=== PATIENT | female | born 1945 | race African-American/Black ===

== ENCOUNTER 2016-11-08 07:30 | Outpatient (CLI) | payer MEDICARE, BC ==
[2016-11-08 08:02] LABS: Anion Gap 13 mmol/L (10-20); BUN (Urea Nitrogen) 20 mg/dL (9.8-20.1); Calc. Creatinine Clearance 0 mL/min (70-130); Calcium 9.8 mg/dL (7.8-10.44); Carbon Dioxide 24 mmol/L (23-31); Chloride 111 mmol/L (98-107); Estimated GFR-MDRD 45; Glucose 89 mg/dL (83-110); Potassium 4.8 mmol/L (3.5-5.1); Sodium 143 mmol/L (136-145)
== END 2016-11-08 07:31 | disposition home or self-care (01) ==
LOC: BURLAB 07:30
PROVIDERS: ATTEND Family Medicine
DX: Z00.00 Encounter for general adult medical examination without abnormal findings (principal)
CPT/HCPCS: 36415; 80048

== ENCOUNTER 2016-12-22 14:30 | Emergency (ER) | payer MEDICARE, BC ==
[2016-12-22] MEDS ORDERED: Hydrochlorothiazide 25 MG TAB ONE (15:13)
== END 2016-12-22 15:22 | disposition home or self-care (01) ==
LOC: BURERS 14:30
DX: I10 Essential (primary) hypertension (principal); F41.9 Anxiety disorder, unspecified; F32.9 Major depressive disorder, single episode, unspecified; F17.210 Nicotine dependence, cigarettes, uncomplicated
CPT/HCPCS: 93005

== ENCOUNTER 2017-01-19 13:17 | Outpatient (CLI) | payer MEDICARE, BC ==
[2017-01-19 14:00] LABS: ALT (SGPT) 17 U/L (8-55); AST (SGOT) 21 U/L (5-34); Albumin 4.3 g/dL (3.4-4.8); Alkaline Phosphatase 80 U/L (40-150); Anion Gap 14 mmol/L (10-20); BUN (Urea Nitrogen) 19 mg/dL (9.8-20.1); Bilirubin, Total 0.2 mg/dL (0.2-1.2); Calc. Creatinine Clearance 0 mL/min (70-130); Calcium 9.8 mg/dL (7.8-10.44); Carbon Dioxide 23 mmol/L (23-31); Chloride 109 mmol/L (98-107); Estimated GFR-MDRD 39; Globulin 3.1 g/dL (2.4-3.5); Glucose 82 mg/dL (83-110); Potassium 4.2 mmol/L (3.5-5.1); Protein, Total 7.4 g/dL (6.0-8.3); Sodium 142 mmol/L (136-145)
[2017-01-19 14:10] LABS: #Basophils 0.1 thou/uL (0.0-0.2); #Eosinphils 0.1 thou/uL (0.0-0.7); #Lymphocytes 2.1 thou/uL (1.20-3.40); #Monocytes 0.3 thou/uL (0.11-0.59); %Basophils 2.5 % (0.0-1.0); %Eosinophils 1.1 % (0.0-10.0); %Lymphocytes 45.7 % (21.0-51.0); %Monocytes 7.1 % (0.0-10.0); %Neutrophils 43.7 % (42.0-75.0); Hemoglobin 13.4 g/dL (12.0-16.0); Mean Corpuscular Hemoglobin 30.2 pg (27.0-31.0); Mean Corpuscular Volume 88.7 fl (81.0-99.0); Mean Platelet Volume 6.4 fL (7.4-10.4); Platelet Count 245 thou/uL (130-400); RBC Distribution Width 12.4 % (11.5-14.5); Red Blood Cell (RBC) Count 4.46 mill/uL (4.20-5.40); White Blood Cell (WBC) Count 4.6 thou/uL (4.8-10.8)
[2017-01-19 14:22] LABS: Free T4 (Free Thyroxine) 0.81 ng/dL (0.70-1.48); Thyroid Stimulating Hormone 0.5355 uIU/mL (0.35-4.94)
[2017-01-19 14:38] LABS: RBC Sedimentation Rate (ESR) 29 mm/hr (0-20)
[2017-01-19 22:30] LABS: RPR NONREACTIVE (NONREACTIVE)
[2017-01-19 22:36] LABS: Rheumatoid Factor Negative (Negative)
[2017-01-21 18:11] LABS: Antinuclear AB Positive (Negative); Smith Antibodies <0.2 AI (0.0-0.9); U1RNP/snRNP IGG Autoabs 6.3 AI (0.0-0.9)
== END 2017-01-19 13:18 | disposition home or self-care (01) ==
LOC: BURLAB 13:17
PROVIDERS: ATTEND Specialist
DX: H91.92 Unspecified hearing loss, left ear (principal); Z79.899 Other long term (current) drug therapy
CPT/HCPCS: 36415; 80053; 84439; 84443; 85025; 85652; 86430; 86592

== ENCOUNTER 2017-03-03 07:03 | Outpatient (CLI) | payer MEDICARE, BC ==
[2017-03-03 08:17] LABS: ALT (SGPT) 25 U/L (8-55); AST (SGOT) 31 U/L (5-34); Albumin 4.4 g/dL (3.4-4.8); Alkaline Phosphatase 83 U/L (40-150); Anion Gap 16 mmol/L (10-20); BUN (Urea Nitrogen) 19 mg/dL (9.8-20.1); Bilirubin, Total 0.4 mg/dL (0.2-1.2); Calc. Creatinine Clearance 0 mL/min (70-130); Calcium 9.9 mg/dL (7.8-10.44); Carbon Dioxide 23 mmol/L (23-31); Cardiac Risk 2.8 (Less than 4.5); Chloride 110 mmol/L (98-107); Cholesterol 239 mg/dl (< 200 Desired); Estimated GFR-MDRD 40; Glucose 92 mg/dL (83-110); HDL Cholesterol 85 mg/dL (>60 Neg Risk); LDL Cholesterol, Calculated 144 mg/dL; Potassium 5.2 mmol/L (3.5-5.1); Protein, Total 7.4 g/dL (6.0-8.3); Sodium 144 mmol/L (136-145); Triglycerides 52 mg/dL (Less than 150)
[2017-03-03 08:50] LABS: #Basophils 0.1 thou/uL (0.0-0.2); #Eosinphils 0.1 thou/uL (0.0-0.7); #Lymphocytes 1.8 thou/uL (1.20-3.40); #Monocytes 0.5 thou/uL (0.11-0.59); #Neutrophils 2.4 thou/uL (1.40-6.50); %Basophils 2.5 % (0.0-1.0); %Eosinophils 1.8 % (0.0-10.0); %Lymphocytes 37.3 % (21.0-51.0); %Monocytes 9.8 % (0.0-10.0); %Neutrophils 48.7 % (42.0-75.0); Mean Corpuscular Hemoglobin 29.7 pg (27.0-31.0); Mean Corpuscular Volume 90.2 fl (81.0-99.0); Mean Platelet Volume 6.4 fL (7.4-10.4); Platelet Count 315 thou/uL (130-400); RBC Distribution Width 13.2 % (11.5-14.5); Red Blood Cell (RBC) Count 4.72 mill/uL (4.20-5.40); White Blood Cell (WBC) Count 4.9 thou/uL (4.8-10.8)
== END 2017-03-03 07:04 | disposition home or self-care (01) ==
LOC: BURLAB 07:03
PROVIDERS: ATTEND Family Medicine
DX: Z13.6 Encounter for screening for cardiovascular disorders (principal); I10 Essential (primary) hypertension
CPT/HCPCS: 36415; 80053; 80061; 85025

== ENCOUNTER 2017-04-14 13:26 | Emergency (ER) | payer MEDICARE, BC | END 2017-04-14 15:39 | disposition home or self-care (01) | LOC: BURERS 13:26 | DX: J06.9 Acute upper respiratory infection, unspecified (principal); H81.12 Benign paroxysmal vertigo, left ear; H65.92 Unspecified nonsuppurative otitis media, left ear; I10 Essential (primary) hypertension; F41.9 Anxiety disorder, unspecified; F32.9 Major depressive disorder, single episode, unspecified; F17.210 Nicotine dependence, cigarettes, uncomplicated; Z79.899 Other long term (current) drug therapy ==

== ENCOUNTER 2017-07-31 05:23 | Emergency (ER) | payer MEDICARE, BC ==
[2017-07-31] MEDS ORDERED: Meclizine HCl 25 MG TAB ONE (05:48)
[2017-07-31] MEDS ORDERED: Ondansetron ODT 4 MG TAB ONE (05:48)
[2017-07-31] MEDS ORDERED: AMOXicillin 250 MG CAP ONE (06:07)
== END 2017-07-31 08:13 | disposition home or self-care (01) ==
LOC: BURERS 05:23
DX: R42 Dizziness and giddiness (principal); J06.9 Acute upper respiratory infection, unspecified; I10 Essential (primary) hypertension; F17.210 Nicotine dependence, cigarettes, uncomplicated; F41.9 Anxiety disorder, unspecified; F32.9 Major depressive disorder, single episode, unspecified; Z79.899 Other long term (current) drug therapy
CPT/HCPCS: 99284; Q0162

== ENCOUNTER 2017-08-05 10:13 | Emergency (ER) | payer MEDICARE, BC | END 2017-08-05 10:53 | disposition home or self-care (01) | LOC: BURERS 10:13 | DX: R42 Dizziness and giddiness (principal); I10 Essential (primary) hypertension; F41.9 Anxiety disorder, unspecified; F32.9 Major depressive disorder, single episode, unspecified; F17.210 Nicotine dependence, cigarettes, uncomplicated | CPT/HCPCS: 99283 ==

== ENCOUNTER 2017-08-08 11:27 | Emergency (ER) | payer MEDICARE, BC ==
[2017-08-08] MEDS ORDERED: Diazepam 10 MG/2 ML SYRINGE ONE (11:41)
[2017-08-08] MEDS ORDERED: diphenhydrAMINE 50 MG/ML VIAL ONE (11:45)
== END 2017-08-08 13:09 | disposition home or self-care (01) ==
LOC: BURERS 11:27
DX: H81.10 Benign paroxysmal vertigo, unspecified ear (principal); F41.9 Anxiety disorder, unspecified; F32.9 Major depressive disorder, single episode, unspecified; F17.210 Nicotine dependence, cigarettes, uncomplicated; Z79.899 Other long term (current) drug therapy
CPT/HCPCS: 96374; 96375; J1200; J3360

== ENCOUNTER 2018-01-08 13:54 | Emergency (ER) | payer MEDICARE, BC ==
[2018-01-08 15:00] LABS: Band 1 % (5-11); Hemoglobin 12.4 g/dL (12.0-16.0); Lymphocytes 48 % (21-51); MDiff Complete? YES; Mean Corpuscular HGB CONC 34.6 g/dL (32.0-36.0); Mean Corpuscular Volume 83.7 fl (81.0-99.0); Mean Platelet Volume 5.7 fL (7.4-10.4); Monocytes 12 % (0-10); Neutrophil 39 % (42-75); Platelet Count 255 thou/uL (130-400); RBC Distribution Width 12.8 % (11.5-14.5); Red Blood Cell (RBC) Count 4.29 mill/uL (4.20-5.40); Small Platelets SLIGHT; White Blood Cell (WBC) Count 4.1 thou/uL (4.8-10.8)
[2018-01-08 15:02] LABS: ALT (SGPT) 21 U/L (8-55); AST (SGOT) 23 U/L (5-34); Albumin 4.3 g/dL (3.4-4.8); Alkaline Phosphatase 100 U/L (40-150); Anion Gap 15 mmol/L (10-20); BUN (Urea Nitrogen) 30 mg/dL (9.8-20.1); Bilirubin, Total 0.3 mg/dL (0.2-1.2); Calc. Creatinine Clearance 0 mL/min (70-130); Calcium 10.2 mg/dL (7.8-10.44); Carbon Dioxide 22 mmol/L (23-31); Chloride 108 mmol/L (98-107); Estimated GFR-MDRD 36; Glucose 101 mg/dL (83-110); INR-International Normal Ratio 0.9; PTT 24.4 SEC (22.9-36.1); Potassium 3.8 mmol/L (3.5-5.1); Protein, Total 7.3 g/dL (6.0-8.3); Prothrombin Time 11.8 SEC (12.0-14.7); Sodium 141 mmol/L (136-145)
[2018-01-08 15:04] LABS: CKMB 2.4 ng/mL (0-6.6); Troponin I Less than 0.010 ng/mL (< 0.028)
[2018-01-08 16:24] LABS: Troponin I Less than 0.010 ng/mL (< 0.028)
--- NOTE | 2018-01-08 20:25 | RAD ---
CHEST TWO VIEWS 01/08/18 Comparison is made with a 12/16/[address] [facility]. The heart is normal in size. There is no vascular congestion, edema, or pleural effusion. No focal pu lmonary infiltrate was seen. The lungs are mildly hyperexpanded, however. Calcification is seen in th e aortic arch. The trachea is midline. IMPRESSION: Hyperexpanded lungs but no acute findings otherwise. POS: HOME
== END 2018-01-08 16:57 | disposition home or self-care (01) ==
LOC: BURERS 13:54
DX: R06.02 Shortness of breath (principal); I10 Essential (primary) hypertension; F17.210 Nicotine dependence, cigarettes, uncomplicated; Z79.82 Long term (current) use of aspirin; Z79.899 Other long term (current) drug therapy
CPT/HCPCS: 71046; 80053; 82553; 83605; 83880; 84484; 85025; 85610; 85730

== ENCOUNTER 2018-01-22 14:27 | Emergency (ER) | payer MEDICARE, BC ==
[2018-01-22 14:55] LABS: #Basophils 0.1 thou/uL (0.0-0.2); #Eosinphils 0.1 thou/uL (0.0-0.7); #Lymphocytes 1.7 thou/uL (1.20-3.40); #Monocytes 0.4 thou/uL (0.11-0.59); #Neutrophils 1.6 thou/uL (1.40-6.50); %Basophils 2.2 % (0.0-1.0); %Eosinophils 1.6 % (0.0-10.0); %Lymphocytes 44.9 % (21.0-51.0); %Monocytes 9.4 % (0.0-10.0); %Neutrophils 41.9 % (42.0-75.0); Hemoglobin 13.5 g/dL (12.0-16.0); Mean Corpuscular Hemoglobin 29.6 pg (27.0-31.0); Mean Corpuscular Volume 82.3 fl (81.0-99.0); Mean Platelet Volume 5.5 fL (7.4-10.4); Platelet Count 230 thou/uL (130-400); RBC Distribution Width 12.4 % (11.5-14.5); Red Blood Cell (RBC) Count 4.54 mill/uL (4.20-5.40); White Blood Cell (WBC) Count 3.9 thou/uL (4.8-10.8)
[2018-01-22 15:12] LABS: ALT (SGPT) 20 U/L (8-55); AST (SGOT) 22 U/L (5-34); Albumin 4.6 g/dL (3.4-4.8); Alkaline Phosphatase 99 U/L (40-150); Anion Gap 18 mmol/L (10-20); BUN (Urea Nitrogen) 31 mg/dL (9.8-20.1); Bilirubin, Total 0.3 mg/dL (0.2-1.2); Calc. Creatinine Clearance 0 mL/min (70-130); Calcium 10.1 mg/dL (7.8-10.44); Carbon Dioxide 18 mmol/L (23-31); Chloride 107 mmol/L (98-107); Estimated GFR-MDRD 37; Glucose 90 mg/dL (83-110); Protein, Total 7.6 g/dL (6.0-8.3); Sodium 139 mmol/L (136-145)
[2018-01-22 15:13] LABS: CKMB 2.1 ng/mL (0-6.6); Troponin I Less than 0.010 ng/mL (< 0.028)
--- NOTE | 2018-01-22 17:09 | RAD ---
PORTABLE CHEST: 01/22/18 An AP portable film at 1428 is compared with a 01/08/18 study. The heart remains normal in size and the lungs are clear. There is no vascular congestion, edema, or pleural effusion. No infiltrates are seen. Calcification of the aortic arch is noted. IMPRESSION: Arteriosclerotic change but no acute finding. POS: HOME
== END 2018-01-22 15:35 | disposition home or self-care (01) ==
LOC: BURERS 14:27
DX: I47.1 Supraventricular tachycardia (principal); I10 Essential (primary) hypertension; F17.210 Nicotine dependence, cigarettes, uncomplicated; Z79.899 Other long term (current) drug therapy
CPT/HCPCS: 36415; 71045; 80053; 82553; 83880; 84484; 85025; 85379; 93005; 96360

== ENCOUNTER 2018-02-16 07:13 | Emergency (ER) | payer MEDICARE, BC ==
[2018-02-16] MEDS ORDERED: Nitroglycerin 0.4 MG TAB (25 Tab Bottle) ONE (07:37)
[2018-02-16 07:41] LABS: #Basophils 0.1 thou/uL (0.0-0.2); #Eosinphils 0.1 thou/uL (0.0-0.7); #Lymphocytes 1.8 thou/uL (1.20-3.40); #Monocytes 0.4 thou/uL (0.11-0.59); #Neutrophils 1.7 thou/uL (1.40-6.50); %Lymphocytes 44.5 % (21.0-51.0); %Monocytes 8.6 % (0.0-10.0); %Neutrophils 42.9 % (42.0-75.0); Hemoglobin 13.8 g/dL (12.0-16.0); Mean Corpuscular HGB CONC 35.1 g/dL (32.0-36.0); Mean Corpuscular Hemoglobin 28.8 pg (27.0-31.0); Mean Corpuscular Volume 82.1 fL (78.0-98.0); Mean Platelet Volume 5.8 fL (7.4-10.4); Platelet Count 277 thou/uL (130-400); RBC Distribution Width 12.5 % (11.5-14.5); Red Blood Cell (RBC) Count 4.78 mill/uL (4.20-5.40); White Blood Cell (WBC) Count 4.1 thou/uL (4.8-10.8)
[2018-02-16 07:51] LABS: INR-International Normal Ratio 0.9; PTT 24.1 SEC (22.9-36.1); Prothrombin Time 11.9 SEC (12.0-14.7)
[2018-02-16 07:53] LABS: ALT (SGPT) 22 U/L (8-55); AST (SGOT) 23 U/L (5-34); Albumin 4.6 g/dL (3.4-4.8); Alkaline Phosphatase 96 U/L (40-150); Anion Gap 18 mmol/L (10-20); BUN (Urea Nitrogen) 25 mg/dL (9.8-20.1); Bilirubin, Total 0.3 mg/dL (0.2-1.2); CK (CPK) 164 U/L (29-168); Calc. Creatinine Clearance 0 mL/min (70-130); Calcium 9.9 mg/dL (7.8-10.44); Carbon Dioxide 18 mmol/L (23-31); Chloride 110 mmol/L (98-107); Estimated GFR-MDRD 39; Globulin 3.3 g/dL (2.4-3.5); Glucose 128 mg/dL (83-110); Potassium 4.1 mmol/L (3.5-5.1); Protein, Total 7.9 g/dL (6.0-8.3); Sodium 142 mmol/L (136-145)
[2018-02-16 07:56] LABS: CKMB 1.6 ng/mL (0-6.6); Troponin I Less than 0.010 ng/mL (< 0.028)
--- NOTE | 2018-02-16 09:07 | RAD ---
AP CHEST: History: Chest pain. Date: 02-16-18 Comparison: 01-22-18 FINDINGS: AP chest demonstrates the lungs to be well aerated. No evidence of active intrathoracic disease seen. No evidence of effusions, pneumonia, or pneumothorax is seen. IMPRESSION: Unremarkable AP chest. POS: [facility]
== END 2018-02-16 09:50 | disposition short-term general hospital (02) ==
LOC: BURERS 07:13
DX: R07.2 Precordial pain (principal); I10 Essential (primary) hypertension; N28.9 Disorder of kidney and ureter, unspecified; F17.210 Nicotine dependence, cigarettes, uncomplicated; Z79.899 Other long term (current) drug therapy; Z79.82 Long term (current) use of aspirin
CPT/HCPCS: 36415; 71045; 80053; 82553; 83880; 84484; 85025; 85379; 85610; 85730; 93005; 94760

== ENCOUNTER 2018-03-20 13:11 | Emergency (ER) | payer MEDICARE, BC ==
[2018-03-20] MEDS ORDERED: Adenosine 6 MG/2 ML VIAL ONE (13:17)
[2018-03-20 13:37] LABS: #Basophils 0.1 thou/uL (0.0-0.2); #Eosinphils 0.1 thou/uL (0.0-0.7); #Lymphocytes 2.2 thou/uL (1.20-3.40); #Monocytes 0.3 thou/uL (0.11-0.59); #Neutrophils 2.1 thou/uL (1.40-6.50); %Basophils 2.9 % (0.0-1.0); %Eosinophils 1.1 % (0.0-10.0); %Lymphocytes 46.4 % (21.0-51.0); %Monocytes 5.4 % (0.0-10.0); %Neutrophils 44.2 % (42.0-75.0); Hemoglobin 13.8 g/dL (12.0-16.0); Mean Corpuscular HGB CONC 35.4 g/dL (32.0-36.0); Mean Corpuscular Hemoglobin 28.5 pg (27.0-31.0); Mean Corpuscular Volume 80.5 fL (78.0-98.0); Mean Platelet Volume 5.7 fL (7.4-10.4); Platelet Count 243 thou/uL (130-400); RBC Distribution Width 12.6 % (11.5-14.5); Red Blood Cell (RBC) Count 4.85 mill/uL (4.20-5.40); White Blood Cell (WBC) Count 4.8 thou/uL (4.8-10.8)
[2018-03-20 13:54] LABS: ALT (SGPT) 29 U/L (8-55); AST (SGOT) 36 U/L (5-34); Albumin 4.6 g/dL (3.4-4.8); Alkaline Phosphatase 90 U/L (40-150); Anion Gap 18 mmol/L (10-20); BUN (Urea Nitrogen) 30 mg/dL (9.8-20.1); Bilirubin, Total 0.3 mg/dL (0.2-1.2); Calc. Creatinine Clearance 0 mL/min (70-130); Calcium 10.5 mg/dL (7.8-10.44); Carbon Dioxide 20 mmol/L (23-31); Chloride 106 mmol/L (98-107); Estimated GFR-MDRD 35; Globulin 3.5 g/dL (2.4-3.5); Glucose 110 mg/dL (83-110); Potassium 4.7 mmol/L (3.5-5.1); Protein, Total 8.1 g/dL (6.0-8.3); Sodium 139 mmol/L (136-145)
[2018-03-20 13:56] LABS: CKMB 2.3 ng/mL (0-6.6); Troponin I Less than 0.010 ng/mL (< 0.028)
[2018-03-20 14:20] LABS: Amphetamine Not Detected (NotDetected); Barbiturates Screen Not Detected (NotDetected); Benzodiazepine Screen Detected (NotDetected); Cocaine Metabolite Screen Not Detected (NotDetected); Medtox Control Line Valid? VALID (VALID); Methadone Not Detected (NotDetected); Methamphetamine Not Detected (NotDetected); Opiate Screen Not Detected (NotDetected); Oxycodone Screen Not Detected (NotDetected); Phencyclidine (PCP) Not Detected (NotDetected); THC/Cannabinoid Screen Not Detected (NotDetected); Tricyclic Screen Not Detected (NotDetected)
--- NOTE | 2018-03-20 20:09 | RAD ---
PORTABLE CHEST: 03/20/18 An AP portable film at 1317 is compared with a 02/16 study. The heart size remains the same. There is no vascular congestion, edema, or pleural effusion. The jeannine gs are clear. IMPRESSION: No acute thoracic finding. POS: HOME
== END 2018-03-20 14:49 | disposition home or self-care (01) ==
LOC: BURERS 13:11
DX: I47.1 Supraventricular tachycardia (principal); I10 Essential (primary) hypertension; F17.210 Nicotine dependence, cigarettes, uncomplicated; Z79.899 Other long term (current) drug therapy; Z79.82 Long term (current) use of aspirin
CPT/HCPCS: 71045; 80053; 80306; 82553; 83605; 83880; 84443; 84484; 85025; 93005; 94760; 96374; J0153

== ENCOUNTER 2018-06-30 07:35 | Outpatient (CLI) | payer MEDICARE, BC ==
[2018-06-30 12:40] LABS: Albumin 4.5 g/dL (3.4-4.8); Anion Gap 12 mmol/L (10-20); BUN (Urea Nitrogen) 37 mg/dL (9.8-20.1); Calc. Creatinine Clearance 0 mL/min (70-130); Carbon Dioxide 24 mmol/L (23-31); Chloride 105 mmol/L (98-107); Estimated GFR-MDRD 34; Glucose 84 mg/dL (83-110); Phosphorus 3.3 mg/dL (2.3-4.7); Potassium 4.3 mmol/L (3.5-5.1); Sodium 137 mmol/L (136-145)
--- NOTE | 2018-06-30 22:34 | ULT ---
BILATERAL RENAL ULTRASOUND 06/30/18 Ultrasonography of the urinary tract was performed following injury. The right kidney measures 8.6 x 3.2 x 3.9 cm. No mass, hydronephrosis, or laceration was seen. The co rtex appears normal. The left kidney measures 9.1 x 5.1 x 3.6 cm. No mass, hydronephrosis or signs of injury were found. The urinary bladder contain no internal defects. Bilateral ureteral jets were seen. IMPRESSION: No significant urinary tract findings. POS: HOME
== END 2018-06-30 07:36 | disposition home or self-care (01) ==
LOC: BURULT 07:35
PROVIDERS: ATTEND Internal Medicine
DX: N17.9 Acute kidney failure, unspecified (principal)
CPT/HCPCS: 36415; 76770; 80069

== ENCOUNTER 2019-02-19 13:56 | Emergency (ER) | payer MEDICARE, BC | END 2019-02-19 14:15 | disposition home or self-care (01) | LOC: BURERS 13:56 | DX: R19.7 Diarrhea, unspecified (principal); F41.9 Anxiety disorder, unspecified; F17.210 Nicotine dependence, cigarettes, uncomplicated | CPT/HCPCS: 99281 ==

== ENCOUNTER 2019-11-07 13:50 | Outpatient (CLI) | payer MEDICARE, BC ==
--- NOTE | 2019-11-07 14:37 | RAD ---
Chest 2 views HISTORY: Cough. Dyspnea. COMPARISON: 01/08/2018. FINDINGS: Cardiac silhouette and pulmonary vasculature are unremarkable. Mediastinum is midline. Lung s are well-inflated. Indistinctness of the posterior costophrenic angles on the lateral view is unchanged from the prior exam. No confluent airspace consolidation, pneumothorax, or pleural fluid ap parent. IMPRESSION: No active cardiopulmonary abnormalities are demonstrated.
== END 2019-11-07 13:51 | disposition home or self-care (01) ==
LOC: BURRAD 13:50
PROVIDERS: ATTEND Registered Nurse Community Health
DX: Z13.9 Encounter for screening, unspecified (principal)
CPT/HCPCS: 71046

== ENCOUNTER 2019-11-08 14:36 | Emergency (ER) | payer MEDICARE, BC ==
[2019-11-08 15:49] LABS: #Basophils 0.1 thou/uL (0.0-0.2); #Eosinphils 0.2 thou/uL (0.0-0.7); #Lymphocytes 1.4 thou/uL (1.20-3.40); #Monocytes 0.3 thou/uL (0.11-0.59); %Basophils 1.9 % (0.0-1.0); %Eosinophils 6.1 % (0.0-10.0); %Monocytes 7.8 % (0.0-10.0); %Neutrophils 49.2 % (42.0-75.0); Hemoglobin 12.8 g/dL (12.0-16.0); Mean Corpuscular HGB CONC 31.8 g/dL (32.0-36.0); Mean Corpuscular Hemoglobin 28.5 pg (27.0-31.0); Mean Corpuscular Volume 89.7 fL (78.0-98.0); Mean Platelet Volume 6.7 fL (7.4-10.4); Platelet Count 275 thou/uL (130-400)
[2019-11-08 15:55] LABS: ALT (SGPT) 19 U/L (8-55); AST (SGOT) 23 U/L (5-34); Albumin 4.5 g/dL (3.4-4.8); Alkaline Phosphatase 108 U/L (40-110); Anion Gap 15 mmol/L (10-20); BUN (Urea Nitrogen) 23 mg/dL (9.8-20.1); Bilirubin, Total 0.3 mg/dL (0.2-1.2); Calc. Creatinine Clearance 0 mL/min (70-130); Calcium 9.8 mg/dL (7.8-10.44); Carbon Dioxide 22 mmol/L (23-31); Chloride 108 mmol/L (98-107); Estimated GFR-MDRD 40; Globulin 3.2 g/dL (2.4-3.5); Glucose 100 mg/dL (83-110); Potassium 4.1 mmol/L (3.5-5.1); Protein, Total 7.7 g/dL (6.0-8.3); Sodium 141 mmol/L (136-145)
--- NOTE | 2019-11-08 17:07 | RAD ---
PORTABLE CHEST: 11/08/19 HISTORY: Dyspnea. COMPARISON: 03/20/18. Lungs are clear. No infiltrate. Heart and mediastinum normal. Vascular markings are normal. IMPRESSION: Unremarkable portable chest. POS: OFF
== END 2019-11-08 17:10 | disposition home or self-care (01) ==
LOC: BURERS 14:36
DX: J06.9 Acute upper respiratory infection, unspecified (principal); I10 Essential (primary) hypertension; F41.9 Anxiety disorder, unspecified; F17.210 Nicotine dependence, cigarettes, uncomplicated
CPT/HCPCS: 36415; 71045; 80053; 83880; 84484; 85025; 87804; 93005; J7620

== ENCOUNTER 2019-11-10 11:30 | Emergency (ER) | payer MEDICARE, BC ==
[2019-11-10 12:43] LABS: #Basophils 0.1 thou/uL (0.0-0.2); #Eosinphils 0.2 thou/uL (0.0-0.7); #Lymphocytes 1.3 thou/uL (1.20-3.40); #Monocytes 0.3 thou/uL (0.11-0.59); #Neutrophils 1.7 thou/uL (1.40-6.50); %Basophils 2.2 % (0.0-1.0); %Eosinophils 4.8 % (0.0-10.0); %Lymphocytes 35.7 % (21.0-51.0); %Monocytes 8.9 % (0.0-10.0); %Neutrophils 48.5 % (42.0-75.0); Hemoglobin 12.4 g/dL (12.0-16.0); Mean Corpuscular HGB CONC 31.9 g/dL (32.0-36.0); Mean Corpuscular Hemoglobin 28.9 pg (27.0-31.0); Mean Corpuscular Volume 90.6 fL (78.0-98.0); Mean Platelet Volume 6.6 fL (7.4-10.4); Platelet Count 245 thou/uL (130-400); Red Blood Cell (RBC) Count 4.31 mill/uL (4.20-5.40); White Blood Cell (WBC) Count 3.5 thou/uL (4.8-10.8)
[2019-11-10 12:59] LABS: ALT (SGPT) 20 U/L (8-55); AST (SGOT) 25 U/L (5-34); Albumin 4.5 g/dL (3.4-4.8); Alkaline Phosphatase 112 U/L (40-110); Anion Gap 15 mmol/L (10-20); BUN (Urea Nitrogen) 21 mg/dL (9.8-20.1); Bilirubin, Total 0.3 mg/dL (0.2-1.2); Calc. Creatinine Clearance 0 mL/min (70-130); Calcium 9.8 mg/dL (7.8-10.44); Carbon Dioxide 24 mmol/L (23-31); Chloride 105 mmol/L (98-107); Estimated GFR-MDRD 36; Globulin 3.1 g/dL (2.4-3.5); Glucose 107 mg/dL (83-110); Potassium 4.3 mmol/L (3.5-5.1); Protein, Total 7.6 g/dL (6.0-8.3); Sodium 140 mmol/L (136-145)
== END 2019-11-10 13:31 | disposition home or self-care (01) ==
LOC: BURERS 11:30
DX: J06.9 Acute upper respiratory infection, unspecified (principal); I10 Essential (primary) hypertension; F41.9 Anxiety disorder, unspecified; F17.210 Nicotine dependence, cigarettes, uncomplicated; Z79.899 Other long term (current) drug therapy
CPT/HCPCS: 36415; 80053; 85025; J7620

== ENCOUNTER 2020-06-29 09:25 | Outpatient (CLI) | payer MEDICARE, BC ==
--- NOTE | 2020-06-29 13:24 | RAD ---
CHEST 2 VIEWS: Date: 06/29/2020 Comparison made with the 04/07/2020 study. The heart is normal in size. Calcification is seen in the aortic arch. The lungs are currently clear with no acute infiltrate or effusion seen. The lungs are mildly hyperexpanded. No bony lesions of con cern were noted. IMPRESSION: No acute thoracic finding. POS: HOME
== END 2020-06-29 09:26 | disposition home or self-care (01) ==
LOC: BURRAD 09:25
PROVIDERS: ATTEND Family Medicine
DX: R05 Cough (principal)
CPT/HCPCS: 71046

== ENCOUNTER 2021-04-11 15:26 | Outpatient (CLI) | payer MEDICARE, BC | END 2021-04-11 15:27 | disposition home or self-care (01) | LOC: BURRAD 15:26 | PROVIDERS: ATTEND Family Medicine | DX: R05 Cough (principal); R91.8 Other nonspecific abnormal finding of lung field | CPT/HCPCS: 71046 ==

== ENCOUNTER 2022-02-04 15:47 | Emergency (ER) | payer MEDICARE, BC ==
[2022-02-04 16:34] LABS: #Basophils 0.1 thou/uL (0.0-0.2); #Lymphocytes 1.7 thou/uL (1.20-3.40); #Monocytes 0.3 thou/uL (0.11-0.59); #Neutrophils 2.4 thou/uL (1.40-6.50); %Basophils 1.7 % (0.0-1.0); %Eosinophils 0.9 % (0.0-10.0); %Lymphocytes 37.1 % (21.0-51.0); %Monocytes 7.7 % (0.0-10.0); %Neutrophils 52.7 % (42.0-75.0); Hemoglobin 13.5 g/dL (12.0-16.0); Mean Corpuscular HGB CONC 33.5 g/dL (32.0-36.0); Mean Corpuscular Hemoglobin 29.6 pg (27.0-31.0); Mean Corpuscular Volume 88.4 fL (78.0-98.0); Mean Platelet Volume 6.4 fL (7.4-10.4); Platelet Count 322 thou/uL (130-400); RBC Distribution Width 12.9 % (11.5-14.5); Red Blood Cell (RBC) Count 4.55 mill/uL (4.20-5.40); White Blood Cell (WBC) Count 4.5 thou/uL (4.8-10.8)
[2022-02-04 16:51] LABS: ALT (SGPT) 22 U/L (8-55); AST (SGOT) 23 U/L (5-34); Albumin 4.4 g/dL (3.4-4.8); Alkaline Phosphatase 90 U/L (40-110); Anion Gap 16 mmol/L (10-20); BUN (Urea Nitrogen) 17 mg/dL (9.8-20.1); Bilirubin, Total 0.2 mg/dL (0.2-1.2); Calc. Creatinine Clearance 0 mL/min (70-130); Calcium 9.8 mg/dL (7.8-10.44); Carbon Dioxide 21 mmol/L (23-31); Chloride 109 mmol/L (98-107); Globulin 3.3 g/dL (2.4-3.5); Glucose 94 mg/dL (83-110); Protein, Total 7.7 g/dL (5.8-8.1); Sodium 142 mmol/L (136-145)
[2022-02-04 17:21] LABS: Bilirubin Negative (Negative); Blood, Urine Negative (Negative); Clarity Clear (Clear); Glucose, Urine (Dipstick) Negative (Negative); Ketone, Urine Negative (Negative); Leukocyte Trace (Negative); Nitrite Negative (Negative); Protein, Urine (Dipstick) Negative (Neg-Trace); Urobilinogen 0.2 mg/dL (Less than 2); pH, Urine 5.5 (5.0-9.0)
[2022-02-04 17:23] LABS: Bacteria/HPF None Seen HPF (None Seen); RBC/HPF None Seen HPF (0-3); Specific Gravity, Urine 1.005 (1.002-1.036); Squamous Epithelial 0-3 HPF (0-3); WBC/HPF 0-3 HPF (0-3)
== END 2022-02-04 18:52 | disposition home or self-care (01) ==
LOC: BURERS 15:47
DX: R53.1 Weakness (principal); I10 Essential (primary) hypertension; F17.210 Nicotine dependence, cigarettes, uncomplicated
CPT/HCPCS: 36415; 71045; 74176; 80053; 81003; 81015; 83880; 84484; 85025; 93005

== ENCOUNTER 2022-03-17 08:49 | Emergency (ER) | payer MEDICARE, BC ==
[2022-03-17] MEDS ORDERED: Albuterol 200 PUFF (6.7GM INHALER) ONE (09:46)
[2022-03-17 09:57] LABS: Hemoglobin 13.5 g/dL (12.0-16.0); Mean Corpuscular HGB CONC 34.6 g/dL (32.0-36.0); Mean Corpuscular Hemoglobin 29.7 pg (27.0-31.0); Mean Corpuscular Volume 85.9 fL (78.0-98.0); Mean Platelet Volume 6.2 fL (7.4-10.4); Platelet Count 253 thou/uL (130-400); RBC Distribution Width 12.6 % (11.5-14.5); Red Blood Cell (RBC) Count 4.53 mill/uL (4.20-5.40); White Blood Cell (WBC) Count 3.2 thou/uL (4.8-10.8)
[2022-03-17 10:19] LABS: Lymphocytes 30 % (21-51); MDiff Complete? YES; Monocytes 15 % (0-10); Neutrophil 55 % (42-75); Platelet Morphology Comment Appears Adequate; RBC Morphology Normal
[2022-03-17 10:29] LABS: ALT (SGPT) 44 U/L (8-55); AST (SGOT) 49 U/L (5-34); Albumin 4.2 g/dL (3.4-4.8); Alkaline Phosphatase 94 U/L (40-110); Anion Gap 16 mmol/L (10-20); BUN (Urea Nitrogen) 15 mg/dL (9.8-20.1); Bilirubin, Total 0.3 mg/dL (0.2-1.2); Calc. Creatinine Clearance 0 mL/min (70-130); Calcium 9.6 mg/dL (7.8-10.44); Carbon Dioxide 20 mmol/L (23-31); Chloride 107 mmol/L (98-107); Estimated GFR 36; Globulin 3.2 g/dL (2.4-3.5); Glucose 101 mg/dL (83-110); Potassium 4.1 mmol/L (3.5-5.1); Protein, Total 7.4 g/dL (5.8-8.1); Sodium 139 mmol/L (136-145)
== END 2022-03-17 11:00 | disposition home or self-care (01) ==
LOC: BURERS 08:49
DX: J20.8 Acute bronchitis due to other specified organisms (principal); U09.9 Post COVID-19 condition, unspecified; N17.9 Acute kidney failure, unspecified; I10 Essential (primary) hypertension; F17.210 Nicotine dependence, cigarettes, uncomplicated
CPT/HCPCS: 36415; 71046; 80053; 84484; 85025; 93005

== ENCOUNTER 2024-07-09 12:12 | Emergency (ER) | payer MEDICARE ==
[2024-07-09] MEDS ORDERED: Ipratropium/Albuterol 3 ML NEB ONE (13:21)
[2024-07-09] MEDS ORDERED: predniSONE 20 MG TAB ONE (13:21)
== END 2024-07-09 13:48 | disposition home or self-care (01) ==
LOC: BURERS 12:12
DX: R05.9 Cough, unspecified (principal); F17.210 Nicotine dependence, cigarettes, uncomplicated; I10 Essential (primary) hypertension; I48.91 Unspecified atrial fibrillation
CPT/HCPCS: 71250; J7512; J7620